=== PATIENT | male | born 1960 | race Caucasian/White ===

== ENCOUNTER 2018-04-26 05:33 | Day surgery (SDC) | payer OTHER ==
[2018-04-26] MEDS ORDERED: SOD CHLORIDE 0.9% 1,000 ML IV (06:00)
[2018-04-26 08:02] LABS: ADD MAN DIFF? NO
[2018-04-26 08:04] LABS: WHITE BLOOD COUNT 4.5 10^3/ul (4.8-10.8)
[2018-04-26 08:04] LABS: BASOPHILS % 0.9 % (0.0-2.0); EOSINOPHILS # 0.2 10^3/ul (0.0-0.5); HEMATOCRIT 40.7 % (42.0-52.0); HEMOGLOBIN 13.7 g/dl (14.0-18.0); LYMPHOCYTES # 1.2 10^3/ul (0.8-2.9); LYMPHOCYTES % 25.4 % (15.0-51.0); MEAN CORPUSCULAR HGB CONC 33.7 g/dl (32.0-37.0); MEAN CORPUSCULAR VOLUME 89.1 fl (82.0-101.0); MEAN PLATELET VOLUME 9.5 fl (7.4-10.4); MONOCYTE # 0.5 10^3/ul (0.3-0.9); NEUTROPHIL # 2.7 10^3/ul (1.6-7.5); NEUTROPHILS % 59.5 % (39.0-77.0); PLATELET COUNT 284 10^3/UL (140-415); RED BLOOD COUNT 4.57 10^6/ul (4.70-6.10)
[2018-04-26 08:08] LABS: PROTIME 13.3 Sec (11.9-14.9)
[2018-04-26 08:09] LABS: PARTIAL THROMBOPLASTIN TIME 32.6 Sec (23.0-35.0)
[2018-04-26 08:12] LABS: ALANINE AMINOTRANSFERASE 33 IU/L (13-69); ALBUMIN 4.3 g/dl (3.3-4.9); ALBUMIN/GLOBULIN RATIO 1.38; ALKALINE PHOSPHATASE 120 IU/L (42-121); ANION GAP 11 (5-13); ASPARTATE AMINO TRANSFERASE 33 IU/L (15-46); BILIRUBIN,INDIRECT 0.4 mg/dl (0-1.1); BILIRUBIN,TOTAL 0.4 mg/dl (0.2-1.3); CALCIUM 9.8 mg/dl (8.4-10.2); CARBON DIOXIDE 28 mmol/L (21-31); CHLORIDE 103 mmol/L (97-110); CREATININE 0.94 mg/dl (0.61-1.24); Estimated GFR > 60 mL/min (>60); GLUCOSE 99 mg/dl (70-220); POTASSIUM 4.1 mmol/L (3.5-5.1); SODIUM 142 mmol/L (135-144); TOTAL PROTEIN 7.4 g/dl (6.1-8.1)
[2018-04-26 08:13] LABS: BLOOD UREA NITROGEN 21 mg/dl (7-20)
[2018-04-26] MEDS: CEFAZOLIN 2 GM/50 ML (PMX) 50 ML IVPB (08:17)
[2018-04-26] MEDS ORDERED: MIDAZOLAM 1 MG/ML 2 ML INJ (08:22)
[2018-04-26] MEDS: BUPIVACAINE 0.25% (MPF) 30 ML INJ (08:42)
[2018-04-26] MEDS ORDERED: ONDANSETRON 4 MG INJ (09:01)
[2018-04-26] MEDS ORDERED: PROPOFOL 20 ML (09:06)
[2018-04-26] MEDS ORDERED: LIDOCAINE 2% (SDV) 5 ML INJ (09:06)
[2018-04-26] MEDS ORDERED: GLYCOPYRROLATE 0.4 MG INJ (09:06)
[2018-04-26] MEDS ORDERED: NEOSTIGMINE 3 MG/3 ML SYRINGE (09:07)
[2018-04-26] MEDS ORDERED: CEFAZOLIN 1 GM INJ (09:07)
[2018-04-26] MEDS ORDERED: HYDROmorphONE 1 MG/5 ML IV SYRINGE IV (09:30)
[2018-04-26] MEDS ORDERED: LABETALOL HCL 20MG INJ IV (09:30)
[2018-04-26] MEDS ORDERED: METOCLOPRAMIDE 10 MG INJ IV (09:30)
[2018-04-26] MEDS ORDERED: FENTAnyl 50 MCG/ML VIAL IV (09:30)
[2018-04-26] MEDS ORDERED: DIPHENHYDRAMINE 50 MG INJ IV (09:30)
[2018-04-26] MEDS ORDERED: hydrALAzine 20 MG INJ IV (09:30)
[2018-04-26] MEDS: ONDANSETRON 4 MG INJ IV (09:32)
[2018-04-26] MEDS: MEPERIDINE 25 MG INJ IV (09:33)
[2018-04-26] MEDS: HYDROmorphONE 1 MG/5 ML IV SYRINGE IV (09:33)
[2018-04-26] MEDS: HYDROCODONE/APAP (5/325) TAB PO (10:15)
== END 2018-04-26 11:45 | disposition home or self-care (01) ==
LOC: SDS 05:33
DX: K40.91 Unilateral inguinal hernia, without obstruction or gangrene, recurrent (principal); R00.1 Bradycardia, unspecified
CPT/HCPCS: 49521; 71045; 80053; 85025; 85610; 85730; 88302; 93005

== ENCOUNTER 2018-10-28 09:07 | Day surgery (SDC) | payer OTHER ==
[2018-10-28] MEDS: CEFAZOLIN 2 GM/50 ML (PMX) 50 ML IVPB (06:00)
[2018-10-28 09:53] LABS: ADD MAN DIFF? NO
[2018-10-28 09:57] LABS: BASOPHILS % 0.8 % (0.0-2.0); EOSINOPHILS # 0.2 10^3/ul (0.0-0.5); EOSINOPHILS % 5.1 % (0.0-7.0); HEMATOCRIT 41.3 % (42.0-52.0); HEMOGLOBIN 13.7 g/dl (14.0-18.0); LYMPHOCYTES % 26.1 % (15.0-51.0); MEAN CORPUSCULAR HEMOGLOBIN 29.5 pg (29.0-33.0); MEAN CORPUSCULAR HGB CONC 33.2 g/dl (32.0-37.0); MEAN PLATELET VOLUME 9.1 fl (7.4-10.4); MONOCYTE # 0.4 10^3/ul (0.3-0.9); MONOCYTES % 9.1 % (0.0-11.0); NEUTROPHIL # 2.3 10^3/ul (1.6-7.5); NEUTROPHILS % 58.6 % (39.0-77.0); PLATELET COUNT 241 10^3/UL (140-415); RED BLOOD COUNT 4.64 10^6/ul (4.70-6.10); RED CELL DISTRIBUTION WIDTH 13.6 % (11.5-14.5)
[2018-10-28 10:14] LABS: HOLD TRANSMISSIONS 1
[2018-10-28 10:19] LABS: INR 0.97
[2018-10-28 10:20] LABS: ALANINE AMINOTRANSFERASE 34 IU/L (13-69); ALBUMIN/GLOBULIN RATIO 1.11; ALKALINE PHOSPHATASE 115 IU/L (42-121); ANION GAP 6 (5-13); ASPARTATE AMINO TRANSFERASE 31 IU/L (15-46); BILIRUBIN,INDIRECT 0.6 mg/dl (0-1.1); BILIRUBIN,TOTAL 0.6 mg/dl (0.2-1.3); BLOOD UREA NITROGEN 18 mg/dl (7-20); CALCIUM 9.2 mg/dl (8.4-10.2); CARBON DIOXIDE 28 mmol/L (21-31); CHLORIDE 105 mmol/L (97-110); Estimated GFR > 60 mL/min (>60); GLUCOSE 99 mg/dl (70-220); PARTIAL THROMBOPLASTIN TIME 29.2 Sec (23.0-35.0); POTASSIUM 4.2 mmol/L (3.5-5.1); SODIUM 139 mmol/L (135-144); TOTAL PROTEIN 7.6 g/dl (6.1-8.1)
[2018-10-28] MEDS: SOD CHLORIDE 0.9% 1,000 ML IV (10:36)
[2018-10-28] MEDS ORDERED: LIDOCAINE 2% (SDV) 5 ML INJ (13:10)
[2018-10-28] MEDS ORDERED: NEOSTIGMINE 3 MG/3 ML SYRINGE ×2 (13:10→14:26)
[2018-10-28] MEDS ORDERED: ROCURONIUM 50 MG INJ (13:10)
[2018-10-28] MEDS ORDERED: PROPOFOL 20 ML (13:10)
[2018-10-28] MEDS ORDERED: SUCCINYLCHOLINE CHLORIDE 100 MG/5 ML SYG IV (13:10)
[2018-10-28] MEDS ORDERED: MEPERIDINE 100 MG INJ (13:10)
[2018-10-28] MEDS ORDERED: GLYCOPYRROLATE 0.4 MG INJ ×2 (13:10→14:26)
[2018-10-28] MEDS ORDERED: ONDANSETRON 4 MG INJ IV (13:30)
[2018-10-28] MEDS ORDERED: MIDAZOLAM 1 MG/ML 2 ML INJ IV (13:30)
[2018-10-28] MEDS ORDERED: DIPHENHYDRAMINE 50 MG INJ IV (13:30)
[2018-10-28] MEDS ORDERED: HYDROmorphONE 1 MG/5 ML IV SYRINGE IV ×3 (13:30)
[2018-10-28] MEDS ORDERED: hydrALAzine 20 MG INJ IV (13:30)
[2018-10-28] MEDS ORDERED: FENTAnyl 50 MCG/ML VIAL IV ×3 (13:30)
[2018-10-28] MEDS ORDERED: METOCLOPRAMIDE 10 MG INJ IV (13:30)
[2018-10-28] MEDS ORDERED: EPHEDrine 25 MG/5 ML SYG IV (13:30)
[2018-10-28] MEDS ORDERED: LABETALOL HCL 20MG INJ IV (13:30)
[2018-10-28] MEDS: POLYMYXIN/BACITRACIN 1L IRRIG (14:17)
[2018-10-28] MEDS: BUPIVACAINE 0.25% (MPF) 30 ML INJ (14:17)
[2018-10-28] MEDS ORDERED: CEFAZOLIN 1 GM INJ (14:27)
[2018-10-28] MEDS ORDERED: HYDROCODONE/APAP (5/325) TAB PO (14:30)
[2018-10-28] MEDS: MEPERIDINE 25 MG INJ IV (15:39)
== END 2018-10-28 16:30 | disposition home or self-care (01) ==
LOC: SDS 09:07
DX: K40.31 Unilateral inguinal hernia, with obstruction, without gangrene, recurrent (principal)
CPT/HCPCS: 49521; 71045; 80053; 85025; 85610; 85730; 93005